=== PATIENT | male | born 1950 | race Caucasian/White ===

== ENCOUNTER 2021-01-13 10:32 | Inpatient (IN) | payer MEDICARE, OTHER ==
[~2021-01-13] VITALS: Ht 190.5 cm; Wt 131.6 kg
[~2021-01-13 10:32] MED LIST: AMLO5; ANTI INFLAMATORY; ATOR20; DICL75ER; NEBI5 PO; OXYACE5T PO; PROBIOTIC1 EAC1; PROM25 PO
[2021-01-13] MEDS ORDERED: LOSA50 PO ×2 (10:58→13:15)
[2021-01-13 11:00] LABS: BASOPHILS ABSOLUTE AUTO 0.04 K/mm3 (0.00-0.23); BASOPHILS PERCENT AUTO 1 % (0-2); EOSINOPHILS ABSOLUTE AUTO 0.14 K/mm3 (0.00-0.68); EOSINOPHILS PERCENT AUTO 2 % (0-6); Hematocrit 42.5 % (37.0-53.0); Hemoglobin 14.8 g/dL (13.5-17.5); IMMATURE GRAN ABSOLUTE AUTO 0.01 K/mm3 (0.00-0.10); IMMATURE GRAN PERCENT AUTO 0 % (0-1); LYMPHOCYTES ABSOLUTE AUTO 2.59 K/mm3 (0.84-5.20); LYMPHOCYTES PERCENT AUTO 39 % (21-46); MONOCYTES ABSOLUTE AUTO 0.51 K/mm3 (0.16-1.47); MONOCYTES PERCENT AUTO 8 % (4-13); Mean Corpuscular HGB 31.4 pg (26.0-34.0); Mean Corpuscular HGB Conc 34.8 g/dL (31.5-36.5); Mean Corpuscular Volume 90 fL (80-100); Mean Platelet Volume 12.5 fL (9.1-12.4); NEUTROPHILS ABSOLUTE AUTO 3.28 K/mm3 (1.96-9.15); NEUTROPHILS PERCENT AUTO 50 % (41-73); Platelet Count 145 K/mm3 (150-400); RDW Coefficient Variation 12.1 % (11.7-14.2); RDW Standard Deviation 40.4 fL (35.1-46.3); Red Blood Cell Count 4.72 M/mm3 (4.30-5.90); White Blood Cell Count 6.57 K/mm3 (4.00-11.30)
[2021-01-13 11:20] LABS: Alanine Aminotransfer (ALT/SGP 21 U/L (12-78); Albumin, Blood 3.7 g/dL (3.4-5.0); Albumin/Globulin Ratio 1.1 (0.8-1.8); Alk Phos 31 U/L (50-136); Anion Gap 6 mmol/L (6-16); Aspartate Aminotrans (AST/SGOT 22 U/L (12-37); Bilirubin, Total 0.5 mg/dL (0.1-1.0); Blood Urea Nitrogen 12 mg/dL (8-24); Bun/Creatinine Ratio 12.7 (12.0-20.0); CO2, Blood 24 mmol/L (21-32); Calcium, Blood 8.7 mg/dL (8.5-10.1); Chloride, Blood 107 mmol/L (98-108); Creatinine, Blood 0.95 mg/dL (0.60-1.20); Globulin, Blood 3.4 g/dL (2.2-4.0); Glomerular Filtration Rate >60 (60-); Glucose, Blood 110 mg/dL (70-99); Potassium, Blood 4.2 mmol/L (3.5-5.5); Sodium, Blood 137 mmol/L (136-145); Total Protein, Blood 7.1 g/dL (6.4-8.2); Troponin I 0.062 ng/mL (0.000-0.040)
[2021-01-13] MEDS ORDERED: PANTOPRAZOLE SO40 M2 PO (13:13)
[2021-01-13] MEDS ORDERED: LOSARTAN POTASS25 M2 PO (13:14)
[2021-01-13 13:47] LABS: International Normalized Ratio 0.99; Prothrombin Time Results 10.7 Sec (9.7-11.5)
[2021-01-13 14:10] LABS: Influenza A, PCR NEGATIVE (NEGATIVE); Influenza B, PCR NEGATIVE (NEGATIVE); Resp Syncytial Virus, PCR NEGATIVE (NEGATIVE); SARS-Cov-2 (COVID-19) PCR, MMC NEGATIVE (NEGATIVE)
--- NOTE | 2021-01-13 17:50 | NUR ---
PT TO PCU FROM [facility] AT 1540. ALERT AND ORIENTED X4. ON ROOM SATING ABOVE 94%. DENIES SOB. TELE SHOWING SINUS, HR 70. DENIES CHEST PAIN/PRESSURE. RIGHT RADIAL SIGHT WITH ARM BAND IN PLACE. NO SIGNS OF HEMATOMA OR ACTIVE BLEEDING. PT STATES TENDER PROXIMAL TO BAND. STATES IT FEELS LIKE A "BRUISE". VITAL SIGNS STABLE. MEDICATION ORDERS CLARIFIED WITH DR. BARNARD. DIET ORDERED. PT IN ROOM. WILL CONTINUE TO MONITOR.
--- NOTE | 2021-01-13 19:02 | NUR ---
SHIFT SUMMARY: PT REMAINS STABLE. NO ACUTE CHANGES. ABLE TO EAT A GOOD DINNER. IV FLUIDS INFUSING. TR BAND IN PLACE TOTAL OF 4 ML REMOVED. NO SIGNS OF BLEEDING OR HEMATOMA. REMAINS SOFT. AND SLIGHTLY TENDER FOR PATIENT. VITAL SIGNS STABLE. REPORTED OFF TO ONCOMING RN.
--- NOTE | 2021-01-13 21:28 | NUR ---
ASSUMED CARE OF PATIENT AT [facility] FROM SANA Vazquez RN. PATIENT ALERT AND ORIENTED X4. PATIENT S/P ANGIOGRAM TOAY; RIGHT RADIAL ACCESS; TR BAND IN PLACE; DAYSHIFT RN STARTED TO DEFLATE; 7 CC OF AIR REMOVED; CURRENTLY DEFLATED; WILL REPLACE WITH TEGADERM AT 2230. PATIENT DENIES PAIN, NUMBNESS, TINGLING, DIZZINESS AND NAUSEA. PATIENT REPORTS HE HAD N/T IN RIGHT HAND BEFORE BAND WAS STARTED TO BE DEFLATED. NSR ON TELE; OXYGEN SATURATION ABOVE 90% ON ROOM AIR; HOME CPAP SET UP. IVF INFUSING PER ORDER. PATIENT REQUESTED SLEEP AID FOR TONIGHT; AVA AGUIRRE CALLED AND ORDERS RECIEVED FOR MELATONIN. PATIENT RESTING IN BED; CALL LIGHT IN REACH; BED IN LOWEST POSISTION
[2021-01-14 04:31] LABS: BASOPHILS ABSOLUTE AUTO 0.05 K/mm3 (0.00-0.23); BASOPHILS PERCENT AUTO 1 % (0-2); EOSINOPHILS PERCENT AUTO 2 % (0-6); Hematocrit 36.8 % (37.0-53.0); Hemoglobin 12.6 g/dL (13.5-17.5); IMMATURE GRAN ABSOLUTE AUTO 0.02 K/mm3 (0.00-0.10); IMMATURE GRAN PERCENT AUTO 0 % (0-1); LYMPHOCYTES ABSOLUTE AUTO 1.71 K/mm3 (0.84-5.20); LYMPHOCYTES PERCENT AUTO 28 % (21-46); MONOCYTES ABSOLUTE AUTO 0.51 K/mm3 (0.16-1.47); MONOCYTES PERCENT AUTO 8 % (4-13); Mean Corpuscular HGB 31.6 pg (26.0-34.0); Mean Corpuscular HGB Conc 34.2 g/dL (31.5-36.5); Mean Corpuscular Volume 92 fL (80-100); Mean Platelet Volume 12.4 fL (9.1-12.4); NEUTROPHILS ABSOLUTE AUTO 3.67 K/mm3 (1.96-9.15); NEUTROPHILS PERCENT AUTO 61 % (41-73); Platelet Count 131 K/mm3 (150-400); RDW Coefficient Variation 12.4 % (11.7-14.2); RDW Standard Deviation 42.5 fL (35.1-46.3); Red Blood Cell Count 3.99 M/mm3 (4.30-5.90); White Blood Cell Count 6.06 K/mm3 (4.00-11.30)
[2021-01-14 04:59] LABS: Alanine Aminotransfer (ALT/SGP 16 U/L (12-78); Albumin, Blood 2.9 g/dL (3.4-5.0); Albumin/Globulin Ratio 1.1 (0.8-1.8); Alk Phos 20 U/L (50-136); Anion Gap 4 mmol/L (6-16); Aspartate Aminotrans (AST/SGOT 24 U/L (12-37); Bilirubin, Total 0.4 mg/dL (0.1-1.0); Blood Urea Nitrogen 10 mg/dL (8-24); Bun/Creatinine Ratio 12.2 (12.0-20.0); CHOL/HDL RATIO 6.4; CO2, Blood 25 mmol/L (21-32); Chloride, Blood 116 mmol/L (98-108); Cholesterol 154 mg/dL (50-200); Creatinine, Blood 0.82 mg/dL (0.60-1.20); Globulin, Blood 2.6 g/dL (2.2-4.0); Glomerular Filtration Rate >60 (60-); Glucose, Blood 79 mg/dL (70-99); HDL Cholesterol 24 mg/dL (>39); LDL/HDL RATIO 4.1; Low Density Lipoprotein Chol 98 mg/dL (0-110); Potassium, Blood 3.5 mmol/L (3.5-5.5); Sodium, Blood 145 mmol/L (136-145); Total Protein, Blood 5.5 g/dL (6.4-8.2); Triglycerides 160 mg/dL (30-160); Very Low Density Lipoprot Chol 32 mg/dL (6-32)
--- NOTE | 2021-01-14 06:18 | NUR ---
FRED SLEPT ABOUT SEVEN HOURS WITH HOME CPAP ON FOR MOST OF SHIFT. VSS. TEGADERM PLACED TO RIGHT RADIAL SITE AT APPROXIMATELY 2230; NO CHANGES TO SITE; NO S/S OF ACTIVE BLEEDING, BRUISING OR HEMATOMA. NO OTHER ACUTE CHANGES TO REPORT.
--- NOTE | 2021-01-14 06:56 | NUR ---
DR. CORDOVA BEDSIDE; ORDER TO D/C FLUIDS
[2021-01-14] MEDS ORDERED: ASPI81CH PO (09:47)
[2021-01-14] MEDS ORDERED: ATOR20 PO (09:48)
[2021-01-14] MEDS ORDERED: METO25ER PO (09:49)
[2021-01-14] MEDS ORDERED: CLOP75 PO (09:49)
--- NOTE | 2021-01-14 11:19 | NUR ---
PT DISCHARGED HOME, AMBULATORY WITH . DISCHARGE EDUCATION REVIEWED WITH PT AND HIS , VERBALIZED UNDERSTANDING, NO QUESTIONS OR CONCERNS AT THIS TIME. MEDICATION LIST REVIEWED, RXs HAVE BEEN SENT TO PT'S PHARMACY. PT VERBALIZES NEED TO MAKE FOLLOW UP APPOINTMENTS WITH PROVIDERS. PT INSTRUCTED TO TAKE ALL HIS MEDICATIONS DIRECTED. NO OTHER DISCHARGE NEEDS IDENTIFIED, ALL BELONGINGS SENT WITH PT.
== END 2021-01-14 11:15 | disposition home or self-care (01) | DRG 247 ==
LOC: ER 10:32 → PCU 13:12
PROVIDERS: Emergency Medicine; Nurse Practitioner Acute Care; ADMIT Hospitalist
PROC: 027034Z Dilation of Coronary Artery, One Artery with Drug-eluting Intraluminal Device, Percutaneous Approach (ICD-10-PCS; principal; 2021-01-13)
PROC: 4A023N7 Measurement of Cardiac Sampling and Pressure, Left Heart, Percutaneous Approach (ICD-10-PCS; 2021-01-13)
PROC: B2111ZZ Fluoroscopy of Multiple Coronary Arteries using Low Osmolar Contrast (ICD-10-PCS; 2021-01-13)
DX: I21.4 Non-ST elevation (NSTEMI) myocardial infarction (principal); I10 Essential (primary) hypertension; Z20.822 Contact with and (suspected) exposure to COVID-19; D64.9 Anemia, unspecified; E87.6 Hypokalemia; G47.33 Obstructive sleep apnea (adult) (pediatric); E78.5 Hyperlipidemia, unspecified; E66.01 Morbid (severe) obesity due to excess calories; D69.6 Thrombocytopenia, unspecified; Z68.36 Body mass index [BMI] 36.0-36.9, adult; M19.90 Unspecified osteoarthritis, unspecified site; Z87.891 Personal history of nicotine dependence; Z79.899 Other long term (current) drug therapy; Z88.6 Allergy status to analgesic agent; Z90.49 Acquired absence of other specified parts of digestive tract; Z98.890 Other specified postprocedural states
CPT/HCPCS: 0241U; 36415; 71045; 80053; 80061; 83036; 83690; 83880; 84484; 85025; 85347; 85610; 85730; 93005; 93010; 93306; 93458; 99152; 99153; 99285-25; A9270; A9270-GY; C1725; C1769; C1874; C1887; C1894; C9600; J1644; J2250; J3010; J3246; J7030; J7050; Q9967

== ENCOUNTER 2022-02-21 07:55 | Day surgery (SDC) | payer MEDICARE, OTHER ==
[~2022-02-21] VITALS: Ht 190.5 cm; Wt 129.2 kg
[~2022-02-21 07:55] MED LIST changes: +ASPI81CH PO; +ATOR20 PO; +CLOP75 PO; +LOSA50 PO; +LOSARTAN POTASS25 M2 PO; +METO25ER PO; +PANTOPRAZOLE SO40 M2 PO
== END 2022-02-21 09:56 | disposition home or self-care (01) ==
LOC: ORSCSDS 07:55 → ORSCMMR 09:00 → ORSCSDS 09:00 → ORD 09:00 → ORSCSDS 09:56
PROVIDERS: Internal Medicine Gastroenterology
PROC: 0DBN8ZX Excision of Sigmoid Colon, Via Natural or Artificial Opening Endoscopic, Diagnostic (ICD-10-PCS; principal; 2022-02-21 09:00)
DX: Z12.11 Encounter for screening for malignant neoplasm of colon (principal); Z86.010 Personal history of colon polyps; K63.5 Polyp of colon; K57.30 Diverticulosis of large intestine without perforation or abscess without bleeding; Z80.0 Family history of malignant neoplasm of digestive organs; I25.2 Old myocardial infarction; I25.10 Atherosclerotic heart disease of native coronary artery without angina pectoris; Z79.899 Other long term (current) drug therapy; Z79.82 Long term (current) use of aspirin; G47.33 Obstructive sleep apnea (adult) (pediatric); E66.9 Obesity, unspecified; Z68.35 Body mass index [BMI] 35.0-35.9, adult
CPT/HCPCS: 88305; J2250; J3010; J7120

== ENCOUNTER 2023-08-16 06:37 | Observation (INO) | payer MEDICARE, OTHER ==
[~2023-08-16] VITALS: Ht 188 cm; Wt 127.0 kg
[2023-08-16 07:06] LABS: BASOPHILS ABSOLUTE AUTO 0.04 K/mm3 (0.00-0.23); BASOPHILS PERCENT AUTO 1 % (0-2); EOSINOPHILS ABSOLUTE AUTO 0.13 K/mm3 (0.00-0.68); EOSINOPHILS PERCENT AUTO 2 % (0-6); Hematocrit 42.4 % (37.0-53.0); Hemoglobin 14.8 g/dL (13.5-17.5); IMMATURE GRAN ABSOLUTE AUTO 0.02 K/mm3 (0.00-0.10); IMMATURE GRAN PERCENT AUTO 0 % (0-1); LYMPHOCYTES ABSOLUTE AUTO 2.63 K/mm3 (0.84-5.20); LYMPHOCYTES PERCENT AUTO 43 % (21-46); MONOCYTES PERCENT AUTO 8 % (4-13); Mean Corpuscular HGB 31.8 pg (26.0-34.0); Mean Corpuscular HGB Conc 34.9 g/dL (31.5-36.5); Mean Corpuscular Volume 91 fL (80-100); Mean Platelet Volume 11.8 fL (9.1-12.4); NEUTROPHILS ABSOLUTE AUTO 2.76 K/mm3 (1.96-9.15); NEUTROPHILS PERCENT AUTO 45 % (41-73); Platelet Count 147 K/mm3 (150-400); RDW Coefficient Variation 12.2 % (11.7-14.2); RDW Standard Deviation 39.9 fL (35.1-46.3); Red Blood Cell Count 4.66 M/mm3 (4.30-5.90); White Blood Cell Count 6.08 K/mm3 (4.00-11.30)
[2023-08-16 07:28] LABS: Albumin, Blood 3.8 g/dL (3.4-5.0); Albumin/Globulin Ratio 1.1 (0.8-1.8); Bilirubin, Total 0.5 mg/dL (0.1-1.0); Bun/Creatinine Ratio 16.7 (12.0-20.0); Calcium, Blood 8.7 mg/dL (8.5-10.1); Creatinine, Blood 1.02 mg/dL (0.60-1.20); Globulin, Blood 3.5 g/dL (2.2-4.0); Total Protein, Blood 7.3 g/dL (6.4-8.2)
[2023-08-16 11:21] LABS: Very Low Density Lipoprot Chol 41 mg/dL (6-32)
[2023-08-16 11:24] LABS: CHOL/HDL RATIO 4.2; Cholesterol 148 mg/dL (50-200); HDL Cholesterol 35 mg/dL (>39); Low Density Lipoprotein Chol 72 mg/dL (0-110); Triglycerides 207 mg/dL (30-160)
[2023-08-16 13:37] VITALS: BP 124/88
[2023-08-16] MEDS ORDERED: TAMS.4ER PO (13:46)
[2023-08-16] MEDS ORDERED: PROBIOTIC1 EA13 PO (13:47)
[2023-08-16 15:30] VITALS: BP 116/82
--- NOTE | 2023-08-16 17:30 | NUR ---
LATE ENTRY PT ADMIT FROM ED. INDEPENDENT IN ROOM. FIRST PART OF STRESS TEST COMPLETED BEFORE ADMISSION TO MED FLOOR. SECOND PART WILL BE COMPLETED AT 1330 08/17. PT MAY HAVE BREAKFAST. NO CAFFINE AFTER MIDNIGHT. PT DECLINES CHEST PAIN AND PRESSURE. TELE MONITORING. PT IS ABLE TO MAKE NEEDS KNOWN. BED IS THE LOWEST POSTITION WITH CALL LIGHT IN REACH. INSTRUCTED PT TO CALL WITH NEEDS.
[2023-08-16 19:45] VITALS: BP 123/81
[2023-08-17 05:09] VITALS: BP 119/90
[2023-08-17 05:26] LABS: BASOPHILS ABSOLUTE AUTO 0.04 K/mm3 (0.00-0.23); BASOPHILS PERCENT AUTO 1 % (0-2); EOSINOPHILS ABSOLUTE AUTO 0.14 K/mm3 (0.00-0.68); EOSINOPHILS PERCENT AUTO 2 % (0-6); Hematocrit 41.3 % (37.0-53.0); Hemoglobin 14.3 g/dL (13.5-17.5); IMMATURE GRAN ABSOLUTE AUTO 0.02 K/mm3 (0.00-0.10); IMMATURE GRAN PERCENT AUTO 0 % (0-1); LYMPHOCYTES ABSOLUTE AUTO 2.64 K/mm3 (0.84-5.20); LYMPHOCYTES PERCENT AUTO 37 % (21-46); MONOCYTES ABSOLUTE AUTO 0.63 K/mm3 (0.16-1.47); MONOCYTES PERCENT AUTO 9 % (4-13); Mean Corpuscular HGB 31.4 pg (26.0-34.0); Mean Corpuscular HGB Conc 34.6 g/dL (31.5-36.5); Mean Corpuscular Volume 91 fL (80-100); Mean Platelet Volume 12.2 fL (9.1-12.4); NEUTROPHILS ABSOLUTE AUTO 3.63 K/mm3 (1.96-9.15); NEUTROPHILS PERCENT AUTO 51 % (41-73); Platelet Count 149 K/mm3 (150-400); RDW Coefficient Variation 12.2 % (11.7-14.2); RDW Standard Deviation 40.6 fL (35.1-46.3); Red Blood Cell Count 4.55 M/mm3 (4.30-5.90)
--- NOTE | 2023-08-17 06:10 | NUR ---
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
[2023-08-17 06:12] LABS: Bun/Creatinine Ratio 17.3 (12.0-20.0); Calcium, Blood 8.8 mg/dL (8.5-10.1); Creatinine, Blood 1.04 mg/dL (0.60-1.20)
[2023-08-17 07:38] VITALS: BP 106/72
--- NOTE | 2023-08-17 09:00 | NUR ---
pt laying in bed eating breakfast, a/ox4, pleasant and cooperative with care, follows commands well, denies pain since yesterday am, lungs are clear t/o, resp even and unlabored, no cough noted, on r/a, hrr, tele in place running sr per monitor, see strip, no edema noted, ppp+1, cap refill< 3sec, vs stable, afebrile, piv site is clear and patent, btx4, abd flat soft nontender, voids without diff, skin c/w/d, maew, marty, call light in reach. having stress test at 1330, may have breakfast will hold lunch.
[2023-08-17] MEDS ORDERED: AZELASTINE137 MCG/06 (11:33)
[2023-08-17 16:15] VITALS: BP 102/75
--- NOTE | 2023-08-17 18:37 | NUR ---
pt failed stress test and will be having an angio in am, Dr. Guy in to see him, will keep him npo after midnight. had a shower, no chest pain today, or acute chages. pt understands, and that he will be going to pcu after procedure. call light in reach.
--- NOTE | 2023-08-17 19:00 | NUR ---
RECEIVED REPORT FROM SHASHI RN. WILL PROVIDE CARE T/O SHIFT. CALL LT IN REACH.
[2023-08-17 19:20] VITALS: BP 107/82
--- NOTE | 2023-08-17 20:25 | NUR ---
PT SITTING IN RECLINER CHAIR WATCHING TV. DENIES CP, CHEST PRESSURE AND SOB. PLEASANT AND COOPERATIVE. MEDS GIVEN. NO OTHER NEEDS. CALL LT IN REACH.
--- NOTE | 2023-08-17 22:04 | NUR ---
PT RESTING QUIETLY. ROOM DARKENED. CALL LT IN REACH.
--- NOTE | 2023-08-17 23:01 | NUR ---
CHANGED TELE BATTERIES. NO OTHER NEEDS. CALL LT IN REACH.
[2023-08-18] VITALS (11 sets, daily range): BP systolic 104–132; BP diastolic 68–99
--- NOTE | 2023-08-18 00:24 | NUR ---
PT RESTING QUIETLY. CALL LT IN REACH.
--- NOTE | 2023-08-18 02:10 | NUR ---
PT RESTING QUIETLY. BIPAP IN PLACE. CALL LT IN REACH.
--- NOTE | 2023-08-18 04:21 | NUR ---
PT RESTING QUIETLY. CALL LT IN REACH.
--- NOTE | 2023-08-18 04:58 | NUR ---
SHIFT SUMMARY: PT DENIED CHEST PAIN, CHEST PRESSURE AND SOB T/O SHIFT. NPO FOR ANGIO TODAY. RESTED WELL T/O SHIFT. SR AT 60 ON TELE WELL A BBB AND 1ST DEGREE BLOCK PER LAUNCH OPERATOR. HOLD LOVENOX SCHEDULED FOR THIS MORNING, PT NPO FOR ANGIOGRAM TODAY. NO ACUTE CHANGES. WILL CONTINUE TO PROVIDE CARE UNTIL SHIFT REPORT.
--- NOTE | 2023-08-18 10:10 | NUR ---
NOTE: PATIENT A/OX4. CALM, PLEASANT AND COOPERATIVE c CARE PROVIDED. PATIENT REPORTS L CHEST PRESSURE 2/10 LAST ABOUT 10 MINS AND WENT AWAY. PER PATIENT "IT'S NOT NEW TO ME." PATIENT ON TELE, SB HR IN THE HIGH 50'S BPM c OCCASIONAL PVC, 1ST DEGREE HB AND BBB, PER REWORKER. PATIENT NPO SINCE [place] FOR POSSIBLE ANGIOGRAM THIS AM. PATIENT SITTING UP IN THE RECLINER CHAIR c CALL LIGHT IN REACH. PATIENT WILL BE TRANSFERRING TO PCU RM 6 AFTER ANGIOGRAM. REPORT GIVEN TO TAPE MACHINE TAILERNILSON REGARDING PATIENT CONDITION AND PLAN OF CARE.
--- NOTE | 2023-08-18 10:57 | NUR ---
NOTE: PATIENT LEFT THE ROOM AT 1058, TRANSPORTED VIA BED BY LEMUEL QUESADA TO DITCH DIGGER.
--- NOTE | 2023-08-18 12:26 | NUR ---
PT ARRIVED TO PCU ABOUT 1220 FROM THE ORANGE PICKER MACHINE OPERATOR. LYUBOV HDEZ GAVE REPORT FROM WHEN THE PT WAS IN ROOM 330. PLAN FOR PT TO RECOVER IN PCU AND D/C TODAY IF W/O COMPLICATIONS. THE PT IS &Ox4, WAS ABLE TO CALL HIS TO UPDATE HER, IS ON RA, AND DENIES ANY ANGINA OR CHEST PRESSURE. HE DID NOT HAVE ANY INTERVENTIONS IN HIS ANGIO. HIS RIGHT WRIST HAD A TEGADERM C/D/I W/ A TR BAND INFLATED W/ 11CC'S OF AIR. ARMBOARD IN PLACE. NO SIGNS OF HEMATOMA, BLEEDING, OR N/T. PT EDUCATED ABOUT AVOIDING USE OF RIGHT HAND. FOOD TRAY ORDERED.
[2023-08-18] MEDS ORDERED: Isosorbide Mono30 MG PO (14:49)
[2023-08-18] MEDS ORDERED: NITR.4SL SL (14:51)
--- NOTE | 2023-08-18 16:19 | NUR ---
TR BAND RECOVERED AT 1530 TR BAND RECOVERED W/O ANY ISSUE AT 1530. SITE CLEANED AND TEGADERM PLACED. ARM BOARD IN PLACE. NO SIGNS OF BLLEDING, HEMATOMA, REDNESS, OR PAIN. VS STABLE.
--- NOTE | 2023-08-18 16:21 | NUR ---
PT D/C AT 1620 PT WAS D/C'D THIS EVENING AT 1620. I WENT OVER D/C INFORMATION W/ THE PT AND HIS . SHE ALREADY PICKED UP HIS PRESCRIPTIONS THAT WERE FAXED TO [facility]. ALL QUESTIONS WERE ANSWERED. DRESSING C/D/I. VS STABLE. ALL BELONGINGS SENT WITH THE PT.
== END 2023-08-18 16:20 | disposition home or self-care (01) ==
LOC: ER 06:37 → MEDS 06:38 → ERHOLD 06:38 → MEDS 13:35 → PCU 08-18 11:14
PROVIDERS: Emergency Medicine; ADMIT Internal Medicine
DX: R07.89 Other chest pain (principal); I25.10 Atherosclerotic heart disease of native coronary artery without angina pectoris; I25.2 Old myocardial infarction; E78.5 Hyperlipidemia, unspecified; I10 Essential (primary) hypertension; Z88.5 Allergy status to narcotic agent
CPT/HCPCS: 36415; 71046; 76937; 78452; 80048; 80053; 80061; 83880; 84484; 85025; 93005; 93010; 93017; 93454; 94660; 94760; 94762; 96372; 99152; 99153; 99285-25; A9270; A9500; C1769; C1887; C1894; G0378; J0706; J1644; J1650; J2250; J2785; J3010; J7030; J7050; Q9967